=== PATIENT | female | born 1970 ===

== ENCOUNTER 2024-09-15 12:15 | Inpatient (IN) | payer OTHER ==
[~2024-09-15] VITALS: Ht 172.7 cm; Wt 74.8 kg
[2024-09-15] MEDS ORDERED: PROPRANOLOL HCL20 MG PO (13:30)
[2024-09-15] MEDS ORDERED: METHIMAZOLE10 MG PO (13:31)
[2024-09-15 13:55] VITALS: BP 106/68
[2024-09-23] MEDS ORDERED: DEXAMETHASONE SODIUM PHOSPHATE 4 MG/ML VIAL ONE (07:04)
[2024-09-23] MEDS ORDERED: MORPHINE SULFATE 4 MG/ML VIAL IV ONE ×2 (09:50→10:20)
[2024-09-23] MEDS ORDERED: ONDANSETRON HCL 2 MG/ML VIAL IV PRN (11:15)
[2024-09-23] MEDS ORDERED: ENALAPRILAT DIHYDRATE 1.25 MG/ML VIAL IV PRN (11:15)
[2024-09-23] MEDS ORDERED: ONDANSETRON HCL 2 MG/ML VIAL ONE (12:21)
[2024-09-23] MEDS ORDERED: ONDANSETRON HCL 2 MG/ML VIAL IV ONE (12:25)
[2024-09-23] MEDS ORDERED: TRAMADOL HCL 50 MG TABLET PO SCH (17:00)
[2024-09-23] MEDS ORDERED: CYCLOBENZAPRINE HCL 5 MG TABLET PO SCH (17:00)
[2024-09-23] MEDS ORDERED: DIPHENHYDRAMINE HCL 150 MG,LIDOCAINE HCL 60 ML,MAG HYDROX/ALUMINUM HYD/SIMETH 60 ML PO SCH (17:00)
[2024-09-23] MEDS ORDERED: ACETAMINOPHEN 500 MG GEL..CAP PO SCH (17:00)
[2024-09-23] MEDS ORDERED: MAG HYDROX/ALUMINUM HYD/SIMETH 30 ML BLIST.PACK PO ONE (17:59)
[2024-09-23] MEDS ORDERED: CALCITRIOL 0.5 MCG CAPSULE PO NR (18:00)
[2024-09-23 20:17] VITALS: BP 105/62; O2SAT 100
[2024-09-23] MEDS ORDERED: Calcium Carbonate 1 TAB TABLET PO SCH ×2 (21:00)
[2024-09-23] MEDS ORDERED: PANTOPRAZOLE SODIUM 40 MG/VIAL VIAL IV PUSH SCH (21:00)
[2024-09-24 01:07] VITALS: BP 107/66; O2SAT 95
[2024-09-24] MEDS ORDERED: LEVOTHYROXINE SODIUM 112 MCG TABLET PO SCH (06:00)
[2024-09-24 08:51] VITALS: BP 103/66; O2SAT 96
[2024-09-24] MEDS ORDERED: PROPRANOLOL HCL 20 MG TABLET PO SCH (09:00)
[2024-09-24] MEDS ORDERED: CALCITRIOL 0.5 MCG CAPSULE PO SCH (09:00)
== END 2024-09-24 14:27 | disposition home or self-care (01) | DRG 627 ==
LOC: O/R 09-23 07:57 → SURH 09-23 12:00 → MEDI 09-23 16:59
PROVIDERS: ADMIT Surgery; ATTEND Surgery
PROC: 0GTG0ZZ Resection of Left Thyroid Gland Lobe, Open Approach (ICD-10-PCS; principal; 2024-09-23 12:00)
DX: E05.00 Thyrotoxicosis with diffuse goiter without thyrotoxic crisis or storm (principal)